=== PATIENT | male | born 1945 | race Caucasian/White ===

== ENCOUNTER 2022-04-14 12:47 | Emergency (ER) | payer MEDICARE, OTHER, SELFPAY ==
[2022-04-14] VITALS (26 sets, daily range): BP systolic 98–152; BP diastolic 59–87; PULSE 85–128; RESP 14–49; TEMP 37.2–38; O2SAT 92–99
--- NOTE | ~2022-04-14 | CT_ITS ---
EXAMINATION: CT abdomen pelvis w con DATE: 04/14/2022 18:08 INDICATION: Lower abdominal pain, nausea and vomiting TECHNIQUE: Computed tomography (CT) of the abdomen and pelvis was performed with 100 mL Omnipaque-350 intravenous contrast. Automated exposure control and iterative reconstruction technique were employe d. The dose-length product was 1201.67 mGy-cm. COMPARISON: None FINDINGS: Trace left pleural effusion. Linear bands of atelectasis in the bilateral lower lung zones with depen dent and basilar predominance. Borderline heart size. Atherosclerotic coronary artery calcifications. No pericardial effusion. Liver, spleen, pancreas and right adrenal gland are normal. A few small lef t adrenal nodules largest measuring 1.3 cm most likely representing adenomas. Bilateral subcentimeter low-attenuation renal cysts. Small sliding-type hiatal hernia. Hector-en-Y gastric bypass with jejunojejunal anastomosis in the left abdomen. Cholecystectomy clips at the gallbladder fossa. Small amount of ascites scattered throughou t the abdomen and pelvis. In addition there is moderate amount of free intraperitoneal gas along the nondependent anterior abdominal wall with additional small foci of gas in the fat of the right and le ft upper quadrants. Normal appendix. There is diffuse colonic wall thickening consistent with colitis . There are also scattered colonic diverticula but not with focally increased surrounding inflammator y stranding or medially adjacent gas to suggest diverticulitis or site suspicious for bowel perforati on. Aside from the gastric bypass procedure the small bowel is unremarkable with no obstruction. Status post prostatectomy with mild diffuse mild bladder wall thickening which may be related to prio r lateral obstruction. Peyronie's disease with multiple small calcifications along the penis. Small f at-containing left inguinal hernia. No pathologically enlarged abdominal or pelvic lymphadenopathy. T here is calcified atherosclerosis of the aorta and many of the other arteries. Old healed proximal le ft femoral fracture with antegrade intramedullary alondra and femoral neck dynamic compression screw fixa tion. There are bridging osteophytes at multiple levels in the lumbar and visualized lower thoracic s pine consistent with diffuse idiopathic skeletal hyperostosis (DISH). Severe lumbar spondylosis. IMPRESSION: 1. Diffuse colonic wall thickening consistent with colitis. There is moderate amount of free intraper ineal gas and fluid likely related to associated bowel perforation although discrete location is unab le to be identified. 2. Postoperative change of prior cholecystectomy, Hector-en-Y gastric bypass procedure and prostatectom y. 3. Peyronie's disease. 4. Small fat-containing left inguinal hernia. Reviewed, dictated and finalized at location A. [facility] [employer] IMPRESSION: 1. Diffuse colonic wall thickening consistent with colitis. There is moderate a mount of free intraperineal gas and fluid likely related to associated bowel pe rforation although discrete location is unable to be identified. 2. Postoperative change of prior cholecystectomy, Hector-en-Y gastric bypass proc edure and prostatectomy. 3. Peyronie's disease. 4. Small fat-containing left inguinal hernia.
[2022-04-14 15:44] LABS: Basophils Percent Auto 0.7 % (0.2-1.2); Hematocrit 45.6 % (42.0-52.0); Hemoglobin 15.4 g/dL (14.0-18.0); Immature Granulocyte Absolute 0.01 K/mm3 (0.00-0.031); Immature Granulocyte Percent A 0.3 % (0-0.5); Lymphocytes Absolute Auto 0.17 K/mm3 (0.9-3.2); Lymphocytes Percent Auto 5.8 % (18.3-44.2); Mean Corpuscular HGB Conc 33.8 g/dl (32-36); Mean Corpuscular Hemoglobin 30.9 pg (26-34); Mean Corpuscular Volume 91.4 fl (80-100); Mean Platelet Volume 9.2 fl (7.4-10.4); Monocytes Absolute Auto 0.4 K/mm3 (0.1-0.6); Monocytes Percent Auto 15.1 % (2.6-8.5); Neutrophils Absolute Auto 2.3 K/mm3 (1.3-6.7); Neutrophils Percent Auto 78.1 % (45.5-73.1); Platelet Count Result 203 k/mm3 (150-375); Red Blood Count 4.99 M/mm3 (4.6-6.20); Red Cell Distribution Width 13.5 % (11.5-14.5); White Blood Count 2.9 K/mm3 (4.5-10.0)
[2022-04-14 15:54] LABS: Alanine Aminotransferase 20 U/L (6-50); Albumin Level 3.5 g/dL (3.5-5.1); Alkaline Phosphatase 115 U/L (38-126); Anion Gap 12 mmol/L (8-16); Aspartate Amino Transferase 23 U/L (17-59); Bilirubin,Total 1.3 mg/dL (0.2-1.3); Blood Urea Nitrogen 16 mg/dL (9-20); Calcium 8.3 mg/dL (8.4-10.2); Carbon Dioxide 20 mmol/L (22-30); Chloride 102 mmol/L (98-107); Estimated CRCL calculation 94 ml/min; Estimated Glomerular Filt Rate > 60; Glucose 241 mg/dL (65-110); Lipase 12 U/L (23-300); Potassium 3.5 mmol/L (3.4-5.0); Sodium 134 mmol/L (137-145)
[2022-04-14 16:13] LABS: Ovalocytes 1+ (NORMAL); Platelet Estimate Adequate (Adequate); Schistocytes None Seen (NORMAL)
--- NOTE | 2022-04-14 16:21 | ED.ABDPAIN ---
HPI - Abdominal Pain General Chief Complaint: Abdominal Pain <BHARATHI Santana Last Filed: 04/14/22 22:00> Stated Complaint: abd pain <BHARATHI Santana Last Filed: 04/14/22 22:00> Time Seen by Provider: 04/14/22 16:08 <BHARATHI Santana Last Filed: 04/14/22 22:00> History of Present Illness HPI narrative: Patient is a 77-year-old male with a history of obesity status post josué-en-y gastric bypass (>10 yrs ago), perforated diverticulitis, prostate cancer and bladder cancer, hypertension and diabetes here for evaluation of crampy lower abdominal pain over the past day. Patient states the pain woke him up from his sleep. Initially notes dry heaving but no vomiting. No fevers, chills, constipation. Does note intermittent issues with nonbloody diarrhea for the past week. Patient states that he ate more than he usually does at Thanksgiving dinner yesterday. No sick contacts. Has not attempted any medicine prior to arrival. <BHARATHI Santana Last Filed: 04/14/22 22:00> Related Data Home Medications: Home Medications Medication Instructions Recorded Confirmed cyclobenzaprine 10 mg tablet mg 04/14/22 ergocalciferol (vitamin D2) 1,250 04/14/22 mcg (50,000 unit) capsule hydrochlorothiazide 12.5 mg tablet mg 04/14/22 metformin 500 mg tablet,extended mg PO 04/14/22 release 24 hr omeprazole 20 mg capsule,delayed mg 04/14/22 release <BHARATHI Santana Last Filed: 04/14/22 22:00> Allergies/Adverse Reactions: Allergies Allergy/AdvReac Type Severity Reaction Status Date / Time No Known Allergies Allergy Verified 04/14/22 12:48 <BHARATHI Santana Last Filed: 04/14/22 22:00> Review of Systems Review of Systems: Gen.: Denies fevers or chills Eyes: Denies eye pain or visual change ENT: Denies congestion Respiratory: Denies shortness of breath or cough CV: Denies chest pain or palpitations GI: Reports abdominal pain, nausea. Denies emesis or diarrhea denies burning, urgency, frequency or hematuria Musculoskeletal: Denies back pain or muscle pain Neuro: Denies numbness, tingling, weakness or focal weakness Skin: Denies rash Except as documented, all other systems reviewed and negative <Dasha Leiva PA-C - Last Filed: 04/14/22 22:00> [facility] Past Medical History Medical History: Medical History (Updated 04/14/22 @ 23:41 by Kathelen Lee DO) Essential hypertension GERD (gastroesophageal reflux disease) Obese Prostate cancer Type 2 diabetes mellitus Vitamin D deficiency <Dasha Leiva PA-C - Last Filed: 04/14/22 22:00> Surgical History Surgical History: Surgical History (Updated 04/14/22 @ 22:46 by Kathleen Lee DO) History of exploratory laparotomy History of prostatectomy History of Josué-en-Y gastric bypass Initial ?mini gastric bypass? converted to a Josué-en-Y after what sounds like a perforated pylorus Hx of cholecystectomy <Dasha Leiva PA-C - Last Filed: 04/14/22 22:00> Family History Family History: Family History Other Diabetes mellitus <Dasha Leiva PA-C - Last Filed: 04/14/22 22:00> Social History Social History: Social History (Updated 04/14/22 @ 23:31 by Kathleen Lee DO) Social History: He and his have been since 1971. They live in [facility]. They are in the area visiting 1 of their sons his and their there 5-year-old twin grandsons. He was a former cigarette smoker and smoked at least 1 pack of cigarettes per day from the age of [age]. He still smokes cigars frequently. He drinks 3-4 mixed drinks a night with at least 2 shots per each drink. His last drink was 2 days ago. He denies any other illicit substance use. 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
[2022-04-14] MEDS: SODIUM CHLORIDE 0.9% IV 1,000 ML 999 ML IV CONT ×2 (17:43→19:01)
[2022-04-14] MEDS: ONDANSETRON INJ 4 MG/2 ML VIAL IV PUSH (17:45)
[2022-04-14] MEDS: MORPHINE SULFATE (*CRX) 4 MG/ML INJ IV PUSH (17:45)
[2022-04-14] MEDS: FAMOTIDINE 20 MG/2 ML VIAL IV PUSH (17:46)
[2022-04-14 19:29] LABS: Lactic Acid Reflex 2.3 mmol/L (0.7-2.0)
[2022-04-14 19:55] LABS: SARS-CoV-2 RNA PCR Negative
[2022-04-14] MEDS: SODIUM CHLORIDE 0.9% IV 1,000 ML 150 ML IV CONT (20:39)
--- NOTE | 2022-04-14 22:13 | PM.IMCN ---
Assessment and Plan Assessment and plan (1) Perforated viscus: Code(s): R19.8 - Other specified symptoms and signs involving the digestive system and abdomen Status: Acute (2) Colitis: Code(s): K52.9 - Noninfective gastroenteritis and colitis, unspecified Status: Acute (3) Sepsis: Qualifiers: Sepsis type: sepsis due to unspecified organism Sepsis acute organ dysfunction status: with acute organ dysfunction Severe sepsis acute organ dysfunction type: encephalopathy Severe sepsis shock status: without septic shock Qualified Code(s): A41.9 - Sepsis, unspecified organism; R65.20 - Severe sepsis without septic shock; G93.40 - Encephalopathy, unspecified Code(s): A41.9 - Sepsis, unspecified organism Status: Acute (4) Type 2 diabetes mellitus with hyperglycemia, without long-term current use of insulin: Code(s): E11.65 - Type 2 diabetes mellitus with hyperglycemia Status: Acute Plan I was initially called regarding admission for this patient with CT demonstrating colitis. With patient having free air and fluid noted I deferred admission to surgical service. I went down to evaluate the patient in the ER to find patient appeared very ill and uncomfortable in bed. He had rebound tenderness an involuntary guarding with minimal to absent bowel sounds and tympany noted. I immediately called the surgeon to update him on the patient's condition. The patient had already received fluids in [place] in the ER. The surgeon came in to evaluate the patient. At the time of my evaluation the patient's blood pressures were soft with systolics in the 90s. He has also now spiked a fever in fit sepsis criteria with associated tachycardia, leukopenia and lactic acidosis. I would recommend continuing the fluids and antibiotics. The patient is hyperglycemic which is in part due to his sepsis and perforated viscus. Will order sliding scale insulin q.6 hours as patient will be NPO. Clinical condition: Critical Prognosis: Guarded 150 minutes spent in critical care activities. Spending time talking to multiple specialists, including ER providers, surgeons, medical center manager and ER director. Besides time at bedside evaluating the patient and obtaining history from the patient and . Multiple interactions with the patient and his and multiple re-evaluations HPI Data of Consult Consult date: 04/14/22 Requesting Physician: Anahi Leo MD Primary Care Provider: PHYSICIAN NOT ON STAFF Consult Narrative Narrative: Pramod Gibson is a 77 year old male with a past medical history of type 2 diabetes hypertension vitamin-D deficiency iron deficiency weight loss surgery x2 in prior perforated bowel who presented to the ER via private vehicle due to severe cramping abdominal pain is started around 02:30. The patient reports that the pain was similar to the symptoms he had when he had his prior perforated bowel in approximately 2015. The patient initially had a mini gastric bypass procedure approximately 13 years ago in in 6 years ago had a perforated viscus sounds like it was probably a perforated ulcer. The patient underwent emergent exploratory laparotomy and had conversion of his many bypass to a Hector-en-Y. These procedures were performed at [place] in [facility]. His reports that he usually has some mushy to loose stools at baseline. However she noticed he has had increased episodes of diarrhea over the last month. In fact, he went to the ER 4 days ago for dehydration and received fluids and was discharged home. Then around 02:30 with the severe cramping colicky abdominal pain. His symptoms persisted and his brought him to the ER around noon. The patient was having some dry heaves associated with the abdominal pain. The pain was severe in intensity. He denies any diarrhea or changes in bowel habits. He has not had any recent ill contacts. On arrival he
[2022-04-14 22:16] LABS: Reflex Lactic Acid Yes or No Add Lactic
--- NOTE | 2022-04-14 22:21 | PM.IMHP ---
H&P: HPI History of Present Illness Date/Time: 04/14/22 22:21 Chief Complaint: abdominal pain Narrative: Pt is a 77 y/o M c complicated surgical history including gastric bypass and subsequent revision, perfd diverticulitis presenting to ED c/o worsening abd pain over last 24 hours. Pt reports pain is diffuse but worse in the lower abd. Pt also reports diarrhea over last few wks. Pt reports some nausea, bloating, but no emesis, f/c. Workup, including imaging, significant for perforated viscus. Review of Systems Constitutional: Constitutional: Reports as per HPI, Denies anorexia, Denies chills, Reports fatigue, Reports lethargy, Denies malaise, Denies night sweats, Reports poor appetite, Reports weakness, Denies weight gain and Denies weight loss Eyes: Eyes: Reports no additional eye complaints ENT: Reports system reviewed and no additional complaints, except as documented Cardiovascular: Cardiovascular: Reports no additional cardiovascular complaints Respiratory: Respiratory: Reports no additional respiratory complaints Gastrointestinal: Gastrointestinal: Reports as per HPI, Reports abdominal pain, Reports bloating, Reports change in bowel habits, Reports change in stool character, Reports GI cramping, Reports early satiety, Reports diarrhea, Reports loose stools, Reports nausea and Reports vomiting Musculoskeletal: Musculoskeletal: Reports no additional musculoskeletal complaints Integumentary/Breasts: Skin/Breast: Reports system reviewed and no additional complaints, except as docu Neurologic: Reports system reviewed and no additional complaints, except as documented Psychiatric: Psychiatric: Reports no additional psychiatric complaints Endocrine: Endocrine: Reports no additional endocrine complaints Hematologic/Lymphatic: Hematologic/Lymphatic: Reports no additional hematologic/lymphatic complaints Allergic/Immunologic: Allergic/Immunologic: Reports no additional allergic/immunologic complaints PMFSH Comments PMH - HTN, DM PSH - gastric bypass, revision, perfd diverticulitis SH - denies tob FH - no CRC, IBD Meds Home Medications and Allergies Home Medications Medication Instructions Recorded Confirmed Type cyclobenzaprine 10 mg tablet mg 04/14/22 History ergocalciferol (vitamin D2) 1,250 04/14/22 History mcg (50,000 unit) capsule hydrochlorothiazide 12.5 mg tablet mg 04/14/22 History metformin 500 mg tablet,extended mg PO 04/14/22 History release 24 hr omeprazole 20 mg capsule,delayed mg 04/14/22 History release Allergies Allergy/AdvReac Type Severity Reaction Status Date / Time No Known Allergies Allergy Verified 04/14/22 12:48 Vital Signs Vital Signs - 24 hr 04/14/22 12:51 04/14/22 15:37 04/14/22 16:40 Temperature 37.2 C Pulse Rate 116 H 85 128 H Respiratory Rate 20 16 40 H Blood Pressure 152/80 H 127/65 147/87 H Pulse Oximetry 99 98 98 Oxygen Delivery Room Air 04/14/22 17:47 04/14/22 19:02 04/14/22 20:40 Temperature 38.0 C H Pulse Rate 110 H 112 H 112 H Respiratory Rate 14 14 18 Blood Pressure 104/59 L 119/69 105/60 Pulse Oximetry 97 94 93 Oxygen Delivery Exam Const: General: cooperative, acute distress mild, ill appearing and overweight Orientation/consciousness: patient oriented x3 and confusion HENMT: Head: normal to inspection, normocephalic and atraumatic Eyes: General: appearance normal, both eyes and all related structures Neck: Neck: normal visual inspection, full ROM and no lymphadenopathy Chest: Chest palpation & inspection: normal inspection of the chest Resp: Effort & Inspection: normal respiratory effort Auscultation: clear to auscultation bilaterally Cardio: Rate: tachycardic Rhythm: regular rhythm GI: Inspection: normal to inspection, distended and incision GI Palp: Yes abdominal tenderness, Yes Soft to palpation, Yes Tenderness to palpation present (GI), Yes Guarding due to palpation present (GI) and No Rigid d
[2022-04-15 00:07] VITALS: TEMP 36.8
[2022-04-15 00:24] VITALS: BP 82/53; PULSE 105; RESP 18; TEMP 36.8; O2SAT 94
== END 2022-04-15 00:41 | disposition short-term general hospital (02) ==
LOC: ANHED 20:26 → ANH3MED 22:18 → ANHED 04-15 00:05
PROVIDERS: Physician Assistant; Emergency Provider Emergency Medicine
DX: A41.9 Sepsis, unspecified organism (principal); R65.20 Severe sepsis without septic shock; G93.41 Metabolic encephalopathy; K63.1 Perforation of intestine (nontraumatic); K52.9 Noninfective gastroenteritis and colitis, unspecified; E11.65 Type 2 diabetes mellitus with hyperglycemia; Z20.822 Contact with and (suspected) exposure to COVID-19; I10 Essential (primary) hypertension; E55.9 Vitamin D deficiency, unspecified; Z98.84 Bariatric surgery status; Z90.79 Acquired absence of other genital organ(s); Z85.46 Personal history of malignant neoplasm of prostate; Z85.51 Personal history of malignant neoplasm of bladder; Z87.891 Personal history of nicotine dependence; Z79.84 Long term (current) use of oral hypoglycemic drugs; N48.6 Induration penis plastica; K40.90 Unilateral inguinal hernia, without obstruction or gangrene, not specified as recurrent
CPT/HCPCS: 36415; 51701; 74177; 80053; 83605; 83690; 85025; 87040; 96361; 96365; 96367; 96375; 99285; J0131; J2270; J2405; J2543; J7030; Q9967; U0003; U0005